=== PATIENT | female | born 1965 | race Caucasian/White ===

== ENCOUNTER 2019-07-07 16:45 | Emergency (ER) | payer SELFPAY ==
[~2019-07-07] VITALS: Ht 170.1 cm; Wt 95.5 kg
[2019-07-07 17:18] LABS: CLARITY,URINE CLOUDY; COLOR,URINE DARK YELLOW
[2019-07-07 17:19] LABS: BILIRUBIN,URINE NEGATIVE (NEGATIVE); GLUCOSE, URINE (UA) NEGATIVE (NEGATIVE); KETONES,URINE NEGATIVE (NEGATIVE); LEUKOCYTE ESTERASE ,URINE NEGATIVE (NEGATIVE); NITRITE,URINE NEGATIVE (NEGATIVE); PROTEIN,URINE NEGATIVE (NEGATIVE)
[2019-07-07 17:25] LABS: AMORPHOUS SEDIMENT,UR LARGE AMOR URATES /LPF; BACTERIA,URINE FEW /HPF
[2019-07-07 17:27] LABS: AMPHETAMINE SCREEN, URINE NEGATIVE (NEGATIVE); BARBITURATE SCREEN URINE NEGATIVE (NEGATIVE); BENZODIAZEPINES SCREEN URINE NEGATIVE (NEGATIVE); CANNABINOID SCREEN, URINE NEGATIVE (NEGATIVE); COCAINE SCREEN URINE NEGATIVE (NEGATIVE); METHADONE STAT NEGATIVE (NEGATIVE); METHAMPHETAMINE SCREEN URINE S NEGATIVE (NEGATIVE); OPIATE SCREEN URINE NEGATIVE (NEGATIVE); OXYCODONE STAT NEGATIVE (NEGATIVE); PROPOXYPHENE STAT NEGATIVE (NEGATIVE); TRICYCLIC ANTIDEPRESSANTS SCRE NEGATIVE (NEGATIVE)
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
[2019-07-07 18:14] VITALS: BP 160/112
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
== END 2019-07-07 18:14 | disposition home or self-care (01) ==
LOC: ER FS 16:47
DX: R11.0 Nausea (principal)
CPT/HCPCS: 80306; 81000; 87088; 99283